=== PATIENT | female | born 2000 | race Caucasian/White ===

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

== ENCOUNTER 2024-05-21 14:23 | Emergency (ER) | payer OTHER ==
[~2024-05-21] VITALS: Ht 160 cm; Wt 55.8 kg
[2024-05-21 15:08] VITALS: BP 144/92
[2024-05-21] MEDS ORDERED: HYDROcodone 7.5-APAP 325 TAB PO ONE (15:15)
[2024-05-21] MEDS ORDERED: OxyCODONE HCL 5 MG TAB PO ONE (15:20)
[2024-05-21] MEDS ORDERED: Norco 10-325 T1 EACH PO (15:24)
[2024-05-21] MEDS ORDERED: CLIN300 PO ×2 (15:24→15:41)
[2024-05-21] MEDS ORDERED: HYDR1TAB94 PO (15:41)
== END 2024-05-21 15:57 | disposition home or self-care (01) ==
LOC: ER 14:23
DX: K04.7 Periapical abscess without sinus (principal); Z88.0 Allergy status to penicillin; Z88.1 Allergy status to other antibiotic agents; Z88.8 Allergy status to other drugs, medicaments and biological substances
CPT/HCPCS: A9270